=== PATIENT | male | born 1995 | race Caucasian/White ===

== ENCOUNTER 2024-03-18 02:34 | Emergency (ER) | payer SELFPAY ==
[~2024-03-18] VITALS: Ht 170.2 cm; Wt 83.0 kg
[2024-03-18 02:34] VITALS: TEMP 98; O2SAT 98
[2024-03-18] MEDS: ONDANSETRON HCL 4MG/2ML INJ IV ONE (03:06)
[2024-03-18] MEDS: MORPHINE SULFATE 4 MG/ML INJ (FOR IV/IM USE) IV ONE (03:06)
[2024-03-18] MEDS: CEFTRIAXONE 1GM/50ML 50 ML IV ONE (03:07)
[2024-03-18] MEDS ORDERED: CEPH500C2 MT (04:13)
[2024-03-18] MEDS ORDERED: IBUP-2029 MT (04:13)
[2024-03-18] MEDS: BACITRACIN/POLYMYXIN B SULFATE OINT 15GM TOP ONE (04:37)
[2024-03-18 04:44] VITALS: BP 119/82; PULSE 66; RESP 14; O2SAT 98
== END 2024-03-18 04:44 | disposition home or self-care (01) ==
LOC: ER 03:04
DX: S71.102A Unspecified open wound, left thigh, initial encounter (principal); X58.XXXA Exposure to other specified factors, initial encounter; Y93.89 Activity, other specified; Y92.89 Other specified places as the place of occurrence of the external cause; Y99.8 Other external cause status
CPT/HCPCS: 73552; 99291; Z7610 ×2; J0696; J2270; J2405